=== PATIENT | female | born 1965 | race Caucasian/White ===

== ENCOUNTER 2019-10-20 00:25 | Emergency (ER) | payer OTHER, SELFPAY ==
[~2019-10-20] VITALS: Ht 152.4 cm; Wt 54.4 kg
[2019-10-20 00:30] VITALS: BP 126/80
[2019-10-20] MEDS ORDERED: KETOROLAC 30 MG/ML VIAL IM ONE (01:00)
[2019-10-20 01:26] LABS: BASOPHILS # (AUTO) 0.1 K/uL (0.00-0.22); BASOPHILS % (AUTO) 1.1 % (0.0-2.0); EOSINOPHILS # (AUTO) 0.1 K/uL (0-0.4); EOSINOPHILS % (AUTO) 0.7 % (0.0-4.0); HEMATOCRIT 38.8 % (36-48); HEMOGLOBIN 12.6 g/dL (12.0-16.0); LYMPHOCYTES # (AUTO) 1.3 K/uL (2.5-16.5); LYMPHOCYTES % (AUTO) 17.2 % (20.5-51.1); MEAN CORPUSCULAR HEMOGLOBIN 28 pg (27-31); MEAN CORPUSCULAR HGB CONC 33 g/dL (33-37); MEAN CORPUSCULAR VOLUME 87.4 fL (80-94); MONOCYTES # (AUTO) 0.4 K/uL (0.8-1.0); NEUTROPHILS # (AUTO) 5.6 K/uL (1.8-7.7); PLATELET COUNT (AUTO) 220 K/uL (140-450); RED BLOOD CELL COUNT(AUTO) 4.44 MIL/uL (4.20-5.40); RED CELL DISTRIBUTION WIDTH 15.7 % (11.6-13.7); WHITE BLOOD COUNT (AUTO) 7.4 K/uL (4.8-10.8)
[2019-10-20 01:43] LABS: PROTHROMBIN TIME 10.9 secs (10.8-13.4)
[2019-10-20 01:49] LABS: ALBUMIN 3.3 g/dL (3.4-5.0); ANION GAP 15.5 (8-16); CARBON DIOXIDE 24.1 mmol/L (21-32); CREATININE 1.4 mg/dL (0.6-1.3); FREE T4 (FREE THYROXINE) 1.12 ng/dL (0.76-1.46); POTASSIUM 4.6 mmol/L (3.5-5.1)
[2019-10-20] MEDS ORDERED: HYDROcodone/APAP 5/325 MG 1 TAB TAB PO ONE (02:20)
[2019-10-20 03:00] VITALS: BP 122/78
== END 2019-10-20 03:00 | disposition home or self-care (01) ==
LOC: MED 00:25
DX: N93.9 Abnormal uterine and vaginal bleeding, unspecified (principal); M79.10 Myalgia, unspecified site; J45.909 Unspecified asthma, uncomplicated; E11.9 Type 2 diabetes mellitus without complications; Z90.49 Acquired absence of other specified parts of digestive tract
CPT/HCPCS: 36415; 76830; 80053; 84439; 84443; 85025; 85610; 85730; 86886; 86900; 86901; 93976; 96372; 99284; J1885; Q0092

== ENCOUNTER 2020-02-22 22:44 | Emergency (ER) | payer OTHER, SELFPAY ==
[~2020-02-22] VITALS: Ht 162.6 cm; Wt 72.6 kg
--- NOTE | 2020-02-22 22:45 | NUR ---
PT TAKEN TO BED 6 VIA EMS VIA [facility].
[2020-02-22 22:55] VITALS: BP 92/62
--- NOTE | 2020-02-22 23:00 | NUR ---
PT ASLEEP IN BED IN POSITION OF COMFORT, BED LOW AND LOCKED, SIDERAILS UP, VSS, WILL CONTINUE TO MONITOR
--- NOTE | 2020-02-22 23:10 | NUR ---
LAB AT BEDSIDE
[2020-02-22 23:22] LABS: BASOPHILS # (AUTO) 0.1 K/uL (0.00-0.22); HEMATOCRIT 22.4 % (36-48); LYMPHOCYTES # (AUTO) 1.9 K/uL (2.5-16.5); MEAN CORPUSCULAR HEMOGLOBIN 29 pg (27-31); MONOCYTES # (AUTO) 0.7 K/uL (0.8-1.0); RED BLOOD CELL COUNT(AUTO) 2.52 MIL/uL (4.20-5.40)
[2020-02-22 23:25] LABS: BASOPHILS % (AUTO) 1.3 % (0.0-2.0); EOSINOPHILS # (AUTO) 0.2 K/uL (0-0.4); EOSINOPHILS % (AUTO) 3.4 % (0.0-4.0); MEAN CORPUSCULAR HGB CONC 32 g/dL (33-37); MEAN CORPUSCULAR VOLUME 88.8 fL (80-94); MONOCYTES % (AUTO) 9.8 % (1.7-9.3); NEUTROPHILS # (AUTO) 4.1 K/uL (1.8-7.7); NEUTROPHILS % (AUTO) 58.5 % (42.2-75.2); PLATELET COUNT (AUTO) 297 K/uL (140-450); WHITE BLOOD COUNT (AUTO) 7.1 K/uL (4.8-10.8)
[2020-02-22 23:27] LABS: HEMOGLOBIN 7.2 g/dL (12.0-16.0)
[2020-02-22] MEDS ORDERED: ATOR40TA PO (23:35)
[2020-02-22] MEDS ORDERED: PROP20TA29 PO (23:35)
[2020-02-22] MEDS ORDERED: BACL10TA4 PO (23:35)
[2020-02-22] MEDS ORDERED: TOPI25CA PO (23:35)
[2020-02-22] MEDS ORDERED: CLOP75TA26 PO (23:35)
[2020-02-22] MEDS ORDERED: NAPR-54 PO (23:35)
[2020-02-22] MEDS ORDERED: HYDR-5092 PO (23:35)
[2020-02-22] MEDS ORDERED: TRAZ-343 PO (23:35)
[2020-02-22] MEDS ORDERED: ASPI-1822 PO (23:35)
[2020-02-22] MEDS ORDERED: ALPR0.5T2 PO (23:35)
[2020-02-22] MEDS ORDERED: [UNRECOGNIZED DRUG - CODE] PO (23:35)
[2020-02-22] MEDS ORDERED: GABA400C PO ×2 (23:35)
[2020-02-22] MEDS ORDERED: OXYC40TE66 PO (23:35)
[2020-02-22] MEDS ORDERED: BUPR300T70 PO (23:35)
[2020-02-22 23:36] LABS: ACETAMINOPHEN 3.9 ug/ml (10-30); ALBUMIN 2.4 g/dL (3.4-5.0); ANION GAP 13.7 (8-16); ASPARTATE AMINOTRANSFERASE 13 U/L (15-37); CARBON DIOXIDE 23.2 mmol/L (21-32); CHLORIDE 110 mmol/L (98-107); CREATININE 1.2 mg/dL (0.6-1.3); GFR ARICAN-AMERICAN 61 mL/min (>90); GLUCOSE 109 mg/dL (74-106); POTASSIUM 3.9 mmol/L (3.5-5.1); SODIUM SERUM 143 mmol/L (136-145); TOTAL BILIRUBIN 0.5 mg/dL (0.0-1.0); UREA NITROGEN, BLOOD 20 mg/dL (7-18)
[2020-02-22 23:39] LABS: SALICYLATE < 2.8 mg/dL (2.8-20.0)
--- NOTE | 2020-02-22 23:42 | NUR ---
URINE SAMPLE OBTAINED
--- NOTE | 2020-02-22 23:42 | NUR ---
URINE DIP AND PREG DONE
[2020-02-22 23:57] LABS: APPEARANCE,URINE CLEAR (CLEAR); BILIRUBIN,URINE NEGATIVE (NEGATIVE); BLOOD, URINE NEGATIVE (NEGATIVE); COLOR,URINE YELLOW (YELLOW); LEUKOCYTE ESTERASE ,URINE NEGATIVE (NEGATIVE); NITRITE, URINE NEGATIVE (NEGATIVE); PH,URINE 6.5 (5.0-9.0); UGLUCOSE NEGATIVE (NEGATIVE)
--- NOTE | 2020-02-23 00:04 | NUR ---
54 Y/O FEMALE URBAN BLS FROM HOME FOR C/O ALOC. PT POST OP X 2 DAYS FOR SHUNT PLACED IN L LEG. PER FAMILY PT ON PAIN MEDICATIONS. PT UNABLE TO STATE WHICH PAIN MEDICATIONS SHE TOOK. PUPILS REACTIVE AND BRISK. 3MM. PMH: SHUNT YEE
[2020-02-23 00:08] LABS: BARBITURATE, URINE NEGATIVE ng/ml (NEG <=200); BENZODIAZEPINE, URINE POSITIVE ng/mL (NEG <=200); CANNABINOID, URINE NEGATIVE ng/mL (NEG <=50); COCAINE, URINE NEGATIVE ng/mL (NEG <=300); PHENCYCLIDINE SCREEN,URINE NEGATIVE ng/mL (NEG <=25)
[2020-02-23 00:09] LABS: OPIATE, URINE POSITIVE ng/mL (NEG <=2000)
--- NOTE | 2020-02-23 00:11 | NUR ---
PT ASLEEP IN BED IN POSITION OF COMFORT, BED LOW AND LOCKED, SIDERAILS UP, VSS, WILL CONTINUE TO MONITOR
[2020-02-23] MEDS ORDERED: NACL 0.9% 1,000 ML IV ONE (00:15)
--- NOTE | 2020-02-23 04:10 | NUR ---
PT ASLEEP IN BED IN POSITION OF COMFORT, BED LOW AND LOCKED, SIDERAILS UP, VSS, WILL CONTINUE TO MONITOR
[2020-02-23 05:56] VITALS: BP 124/70
--- NOTE | 2020-02-23 05:56 | NUR ---
Patient discharged with v/s stable. Written and verbal after care instructions given and explained. Patient verbalized understanding. W/C TO ER LOBBY. All questions addressed prior to discharge. Advised to follow up with PMD.
== END 2020-02-23 05:56 | disposition home or self-care (01) ==
LOC: MED 22:44
DX: R40.4 Transient alteration of awareness (principal); E11.9 Type 2 diabetes mellitus without complications; J45.909 Unspecified asthma, uncomplicated; Z98.890 Other specified postprocedural states; Z79.899 Other long term (current) drug therapy
CPT/HCPCS: 36415; 80053; 80305; 81003; 81025; 84484; 85025; 93005; 96360; 99284; C1758; G0480; G0482; J7030; 99283

== ENCOUNTER 2020-02-24 13:14 | Observation (INO) | payer OTHER ==
[~2020-02-24] VITALS: Ht 160 cm; Wt 49.9 kg
[~2020-02-24 13:14] MED LIST: ALPR0.5T2 PO; ASPI-1822 PO; ATOR40TA PO; BACL10TA4 PO; BUPR300T70 PO; CLOP75TA26 PO; GABA400C PO; HYDR-5092 PO; NAPR-54 PO; OXYC40TE66 PO; PROP20TA29 PO; TOPI25CA PO; TRAZ-343 PO; [UNRECOGNIZED DRUG - CODE] PO
[2020-02-24 13:15] VITALS: BP 127/81
[2020-02-24] MEDS ORDERED: cefTRIAXone 1,000 MG VIAL ONE (20:00)
[2020-02-24 20:24] LABS: BASOPHILS # (AUTO) 0.1 K/uL (0.00-0.22); BASOPHILS % (AUTO) 1.4 % (0.0-2.0); EOSINOPHILS # (AUTO) 0.3 K/uL (0-0.4); EOSINOPHILS % (AUTO) 3.8 % (0.0-4.0); HEMATOCRIT 27.8 % (36-48); LYMPHOCYTES # (AUTO) 1.9 K/uL (2.5-16.5); LYMPHOCYTES % (AUTO) 26.1 % (20.5-51.1); MEAN CORPUSCULAR HEMOGLOBIN 28 pg (27-31); MEAN CORPUSCULAR HGB CONC 32 g/dL (33-37); MEAN CORPUSCULAR VOLUME 87.6 fL (80-94); MONOCYTES # (AUTO) 0.7 K/uL (0.8-1.0); MONOCYTES % (AUTO) 9.3 % (1.7-9.3); NEUTROPHILS # (AUTO) 4.4 K/uL (1.8-7.7); NEUTROPHILS % (AUTO) 59.4 % (42.2-75.2); PLATELET COUNT (AUTO) 293 K/uL (140-450); RED BLOOD CELL COUNT(AUTO) 3.18 MIL/uL (4.20-5.40); RED CELL DISTRIBUTION WIDTH 15.7 % (11.6-13.7); WHITE BLOOD COUNT (AUTO) 7.4 K/uL (4.8-10.8)
[2020-02-24 20:34] LABS: ALBUMIN 2.6 g/dL (3.4-5.0); ANION GAP 13.8 (8-16); CARBON DIOXIDE 24.2 mmol/L (21-32); TOTAL BILIRUBIN 0.6 mg/dL (0.0-1.0)
[2020-02-24 20:53] LABS: APPEARANCE,URINE HAZY (CLEAR); BILIRUBIN,URINE NEGATIVE (NEGATIVE); BLOOD, URINE NEGATIVE (NEGATIVE); COLOR,URINE YELLOW (YELLOW); LEUKOCYTE ESTERASE ,URINE 3+ (NEGATIVE); NITRITE, URINE NEGATIVE (NEGATIVE); UGLUCOSE NEGATIVE (NEGATIVE)
[2020-02-24 21:01] LABS: RBC,URINE 0-5 /HPF (0-5)
[2020-02-24 21:02] LABS: WBC,URINE 16-25 (MOD) /HPF (0-5)
[2020-02-24 21:04] LABS: BARBITURATE, URINE NEGATIVE ng/ml (NEG <=200); BENZODIAZEPINE, URINE POSITIVE ng/mL (NEG <=200); CANNABINOID, URINE NEGATIVE ng/mL (NEG <=50); COCAINE, URINE NEGATIVE ng/mL (NEG <=300); OPIATE, URINE POSITIVE ng/mL (NEG <=2000); PHENCYCLIDINE SCREEN,URINE NEGATIVE ng/mL (NEG <=25)
[2020-02-24] MEDS ORDERED: NACL 0.9% 1,000 ML IV SCH (21:05)
[2020-02-24] MEDS ORDERED: ONDANSETRON 4 MG/2 ML VIAL IVP PRN (21:05)
[2020-02-24] MEDS ORDERED: traZODone 50 MG TAB PO PRN (21:05)
[2020-02-24] MEDS ORDERED: LORazepam 2 MG/ML VIAL IVP PRN (21:05)
[2020-02-24] MEDS ORDERED: HALOPERIDOL IM 5 MG/ML VIAL IM PRN (21:10)
[2020-02-24 21:30] VITALS: BP 150/72
[2020-02-25] VITALS: BP 140/86
[2020-02-25] MEDS ORDERED: DEXTROSE 50% 50 ML SYR IVP ONE ×2 (00:30→00:55)
[2020-02-25] MEDS: DEXT 5% / NACL 0.45% 1,000 ML IV SCH ×2 (00:45→17:24)
[2020-02-25 04:00] VITALS: BP 136/85
[2020-02-25] MEDS: ACETAMINOPHEN 325 MG TAB PO PRN ×2 (05:40→21:43)
[2020-02-25 06:29] LABS: BASOPHILS # (AUTO) 0.1 K/uL (0.00-0.22); BASOPHILS % (AUTO) 1.2 % (0.0-2.0); EOSINOPHILS # (AUTO) 0.2 K/uL (0-0.4); HEMATOCRIT 28.1 % (36-48); HEMOGLOBIN 9.1 g/dL (12.0-16.0); LYMPHOCYTES # (AUTO) 1.4 K/uL (2.5-16.5); LYMPHOCYTES % (AUTO) 19.9 % (20.5-51.1); MEAN CORPUSCULAR HEMOGLOBIN 28 pg (27-31); MEAN CORPUSCULAR HGB CONC 32 g/dL (33-37); MONOCYTES # (AUTO) 0.5 K/uL (0.8-1.0); MONOCYTES % (AUTO) 7.5 % (1.7-9.3); NEUTROPHILS # (AUTO) 4.7 K/uL (1.8-7.7); NEUTROPHILS % (AUTO) 68.4 % (42.2-75.2); PLATELET COUNT (AUTO) 308 K/uL (140-450); RED BLOOD CELL COUNT(AUTO) 3.23 MIL/uL (4.20-5.40); RED CELL DISTRIBUTION WIDTH 15.9 % (11.6-13.7); WHITE BLOOD COUNT (AUTO) 6.9 K/uL (4.8-10.8)
[2020-02-25 07:34] LABS: ALBUMIN 2.7 g/dL (3.4-5.0); ANION GAP 17.4 (8-16); CARBON DIOXIDE 21.6 mmol/L (21-32); CREATININE 1.1 mg/dL (0.6-1.3); TOTAL BILIRUBIN 0.5 mg/dL (0.0-1.0)
[2020-02-25 08:00] VITALS: BP 145/78
[2020-02-25] MEDS ORDERED: HYDROcodone/APAP 10/325 MG 1 TAB TAB PO PRN (08:45)
[2020-02-25] MEDS: PROPRANOLOL 20 MG TAB PO SCH ×2 (08:51→21:03)
[2020-02-25] MEDS: ASPIRIN 81 MG TAB.CHEW PO SCH (09:10)
[2020-02-25] MEDS: BACLOFEN 10 MG TAB PO SCH ×3 (09:11→17:21)
[2020-02-25] MEDS: CLOPIDOGREL 75 MG TAB PO SCH (09:12)
[2020-02-25] MEDS: GABAPENTIN 300 MG CAP PO SCH ×3 (09:12→17:21)
[2020-02-25] MEDS: HYDROcodone/APAP 5/325 MG 1 TAB TAB PO PRN ×4 (09:40→23:52)
[2020-02-25 12:00] VITALS: BP 118/72
[2020-02-25] MEDS: HYDRAGUARD CREAM TP SCH (13:00)
[2020-02-25] MEDS: GAUZE TP SCH (13:00)
[2020-02-25 16:00] VITALS: BP 119/65
[2020-02-25] MEDS: oxyCODONE 5 MG TAB PO PRN (17:11)
[2020-02-25] MEDS: ALBUTEROL 0.083% 2.5 MG/3 ML NEBU INH SCH ×2 (18:51→23:19)
[2020-02-25 20:00] VITALS: BP 140/71
[2020-02-25] MEDS ORDERED: CRUSHER, PILL MC ONE (20:37)
[2020-02-26] VITALS: BP 142/70
[2020-02-26] MEDS: HYDRAGUARD CREAM TP SCH ×2 (01:00→12:51)
[2020-02-26] MEDS: GAUZE TP SCH ×2 (01:00→13:14)
[2020-02-26] MEDS: ALBUTEROL 0.083% 2.5 MG/3 ML NEBU INH SCH ×3 (02:45→11:00)
[2020-02-26] MEDS: oxyCODONE 5 MG TAB PO PRN (03:46)
[2020-02-26 04:00] VITALS: BP 140/79
[2020-02-26 08:00] VITALS: BP 152/81
[2020-02-26] MEDS: HYDROcodone/APAP 5/325 MG 1 TAB TAB PO PRN (08:21)
[2020-02-26] MEDS: BACLOFEN 10 MG TAB PO SCH ×2 (08:21→12:50)
[2020-02-26] MEDS: PROPRANOLOL 20 MG TAB PO SCH (08:21)
[2020-02-26] MEDS: ASPIRIN 81 MG TAB.CHEW PO SCH (08:22)
[2020-02-26] MEDS: CLOPIDOGREL 75 MG TAB PO SCH (08:22)
[2020-02-26] MEDS: GABAPENTIN 300 MG CAP PO SCH ×2 (08:22→12:50)
[2020-02-26] MEDS ORDERED: OXY5 PO (08:41)
[2020-02-26] MEDS ORDERED: ALPR0.5T2 PO (08:41)
[2020-02-26] MEDS ORDERED: GABA300C1 PO (08:41)
[2020-02-26] MEDS: DEXT 5% / NACL 0.45% 1,000 ML IV SCH (10:35)
[2020-02-26 11:21] VITALS: BP 157/77
[2020-02-26 11:32] VITALS: BP 157/77
[2020-02-26 12:00] VITALS: BP 157/77
== END 2020-02-26 15:10 | disposition home or self-care (01) ==
LOC: MED 13:14 → MTU 21:08
PROVIDERS: ADMIT Internal Medicine; ATTEND Internal Medicine
DX: T40.2X1A Poisoning by other opioids, accidental (unintentional), initial encounter (principal); R41.82 Altered mental status, unspecified; G93.41 Metabolic encephalopathy; F41.9 Anxiety disorder, unspecified; M79.605 Pain in left leg; G89.29 Other chronic pain; J18.9 Pneumonia, unspecified organism; N39.0 Urinary tract infection, site not specified; R09.02 Hypoxemia; J45.909 Unspecified asthma, uncomplicated; E11.9 Type 2 diabetes mellitus without complications; Z79.899 Other long term (current) drug therapy; X58.XXXA Exposure to other specified factors, initial encounter; Y93.89 Activity, other specified; Y92.89 Other specified places as the place of occurrence of the external cause
CPT/HCPCS: 36415; 71045; 73630; 80053; 80305; 81001; 82948; 85025; 87040; 87081; 87086; 87186; 94640; 94760; 96361; 96365; 96375; 99285; G0378; J0696; J7120; J7613; Q0092; J2405

== ENCOUNTER 2020-03-02 00:40 | Emergency (ER) | payer OTHER ==
[~2020-03-02] VITALS: Ht 152.4 cm; Wt 49.4 kg
[~2020-03-02 00:40] MED LIST changes: +GABA300C1 PO; -GABA400C PO; +OXY5 PO; -OXYC40TE66 PO; -[UNRECOGNIZED DRUG - CODE] PO
[2020-03-02 00:55] VITALS: BP 126/54
--- NOTE | 2020-03-02 01:33 | NUR ---
PT TAKEN TO ER CHAIR TO COLLECT LABS. LABS COLLECTED AND SENT TO LAB.
[2020-03-02 01:44] LABS: BASOPHILS # (AUTO) 0.1 K/uL (0.00-0.22); BASOPHILS % (AUTO) 0.5 % (0.0-2.0); HEMATOCRIT 32.6 % (36-48); HEMOGLOBIN 10.6 g/dL (12.0-16.0); LYMPHOCYTES # (AUTO) 2.7 K/uL (2.5-16.5); LYMPHOCYTES % (AUTO) 23.6 % (20.5-51.1); MEAN CORPUSCULAR HEMOGLOBIN 27 pg (27-31); MEAN CORPUSCULAR HGB CONC 32 g/dL (33-37); MEAN CORPUSCULAR VOLUME 83.8 fL (80-94); MONOCYTES # (AUTO) 0.7 K/uL (0.8-1.0); MONOCYTES % (AUTO) 6.3 % (1.7-9.3); NEUTROPHILS % (AUTO) 69.6 % (42.2-75.2); PLATELET COUNT (AUTO) 400 K/uL (140-450); RED BLOOD CELL COUNT(AUTO) 3.89 MIL/uL (4.20-5.40); WHITE BLOOD COUNT (AUTO) 11.5 K/uL (4.8-10.8)
[2020-03-02 02:01] LABS: ALBUMIN 3.3 g/dL (3.4-5.0); CARBON DIOXIDE 19.7 mmol/L (21-32); CREATININE 1.5 mg/dL (0.6-1.3); POTASSIUM 3.7 mmol/L (3.5-5.1); TOTAL BILIRUBIN 0.8 mg/dL (0.0-1.0)
--- NOTE | 2020-03-02 02:05 | NUR ---
PT TAKEN TO CT VIA W/C.
--- NOTE | 2020-03-02 02:21 | NUR ---
PT TAKEN TO BED 12 VIA W/C.
--- NOTE | 2020-03-02 03:05 | NUR ---
PT CONTINUES TO C/O NAUSEA AND SEVERE PAIN TO L LEG. MD ESCOBAR AWARE.
[2020-03-02] MEDS: NACL 0.9% 1,000 ML IV ONE (03:13)
[2020-03-02] MEDS: KETOROLAC 30 MG/ML VIAL IVP ONE (03:14)
[2020-03-02] MEDS: ONDANSETRON 4 MG/2 ML VIAL IVP ONE (03:14)
--- NOTE | 2020-03-02 03:18 | NUR ---
IV SITE INFILTRATED UNABLE TO MEDICATE WITH IV MORPHINE, MD AWARE CHANGED ORDER TO TRAMADOL.
[2020-03-02] MEDS ORDERED: MORPHINE SULFATE 2 MG/ML SYR IVP ONE (03:25)
[2020-03-02] MEDS: traMADol 50 MG TAB PO ONE (03:45)
--- NOTE | 2020-03-02 03:51 | NUR ---
ADVISED PT SHE WAS GOING TO BE DISCHARGED SHE BEGAN CRYING STATING SHE CAN'T GO HOME WITH THE INTENSE PAIN SHE IS HAVING ABD THE NAUSEA. ADVISED MD ESCOBAR OF SITUATION AND LET HER KNOW PT WANTS TO SPEAK WITH HER.
--- NOTE | 2020-03-02 04:11 | NUR ---
ORDERED ULTRASOUND. TRYING TO ESTABLISH ANOTHER IV LINE.
--- NOTE | 2020-03-02 04:22 | NUR ---
ADVISED PT UA IS NEEDED, CUP LEFT AT BEDSIDE
--- NOTE | 2020-03-02 04:26 | NUR ---
ANDRE HERNANDES AT BEDSIDE TRING TO ESTABLISH AN IV LINE
--- NOTE | 2020-03-02 05:00 | NUR ---
PT UNABLE TO PROVIDE UA SPECIMEN
--- NOTE | 2020-03-02 05:22 | NUR ---
STILL WAITING FOR BAND SEWER AT THIS TIME. PT CONTINUES TO C/O PAIN 03/23. MD ESCOBAR AWARE
[2020-03-02] MEDS: MORPHINE SULFATE 2 MG/ML SYR IVP ONE (05:31)
[2020-03-02] MEDS: LACTULOSE 20 GM/30 ML UDC PO ONE (05:33)
--- NOTE | 2020-03-02 05:54 | NUR ---
D/C PRESCRIPTION AND PAPERWORK GIVEN TO PT, PT SIGNED PAPERWORK AND WAITING FOR HER RIDE WHICH WILL BE HERE IN 45 MINUTES
--- NOTE | 2020-03-02 07:22 | NUR ---
ASSUMED CARE OF PATIENT.
--- NOTE | 2020-03-02 07:30 | NUR ---
IV removed, catheter intact and site benign. Applied folded 4x4 gauze and tape to stop bleeding.
--- NOTE | 2020-03-02 07:41 | NUR ---
PT WAS DICHARGED AND EDUCATED BY PM NURSE AUGUSTIN. IV REMOVED AND WHEELED TO LOBBY IN STABLE CONDITION.
[2020-03-02 07:42] VITALS: BP 123/58
== END 2020-03-02 07:41 | disposition home or self-care (01) ==
LOC: MED 00:40
DX: K59.00 Constipation, unspecified (principal); R11.2 Nausea with vomiting, unspecified; E87.1 Hypo-osmolality and hyponatremia; R74.0 Nonspecific elevation of levels of transaminase and lactic acid dehydrogenase [LDH]; E11.9 Type 2 diabetes mellitus without complications; I82.409 Acute embolism and thrombosis of unspecified deep veins of unspecified lower extremity; J45.909 Unspecified asthma, uncomplicated; K76.0 Fatty (change of) liver, not elsewhere classified; Z90.49 Acquired absence of other specified parts of digestive tract; Z79.899 Other long term (current) drug therapy
CPT/HCPCS: 36415; 74176; 80053; 83690; 85025; 93970; 96361; 96374; 96375; 99284; J1885; J2270; J2405; J7030; Q0092

== ENCOUNTER 2021-03-07 11:18 | Emergency (ER) | payer OTHER ==
[~2021-03-07] VITALS: Ht 152.4 cm; Wt 63.5 kg
[2021-03-07 11:20] VITALS: BP 133/91
--- NOTE | 2021-03-07 11:20 | NUR ---
PT BIBA, PT IN WHEELCHAIR IN CHAIR C, AWAITING BED.
--- NOTE | 2021-03-07 11:27 | NUR ---
DR HUYNH EVALUATING PT IN [facility].
--- NOTE | 2021-03-07 12:10 | NUR ---
PT TAKEN TO BED 12 VIA WHEELCHAIR. PT CONNECTED TO CARDIAC/O2 MONITOR.
--- NOTE | 2021-03-07 12:16 | NUR ---
55 YO FEMALE BIBA FROM HOME, FOUND UNRESPONSIVE BY BF, POSSIBLE OVERDOSE ON MORPHINE. EMS ARRIVED ON SCENE AND GAVE X3 NARCAN. PT IS NOW AOX4. PERRLA, DENIES SOB, PAIN, N/V/D. PATIENT PLACED ON MONITOR. O2 SAT 96%, RR 18. HX LEUKEMIA, DM, ASTHMA, L LEG AMPUTATION X5M AGO. NKDA
[2021-03-07] MEDS ORDERED: NALO4SPR NS (12:30)
--- NOTE | 2021-03-07 13:15 | NUR ---
PT RR DROPPED TO 5 WHILE SLEEPING, PT ARROUDABLE RR INCREASED TO 14 WHILE AWAKE. MD HUYNH MADE AWARE
[2021-03-07] MEDS ORDERED: NALOXONE 0.4 MG/ML VIAL ONE (13:22)
--- NOTE | 2021-03-07 13:45 | NUR ---
PT GIVEN WATER AND ICE CHIPS, PASSED PO TEST.
--- NOTE | 2021-03-07 14:14 | NUR ---
PT RESTING IN BED, RR DROPS TO 5-6, AROUSABLE-AWOKEN, PT RR RETURNED TO 14.
[2021-03-07 16:14] VITALS: BP 111/66
--- NOTE | 2021-03-07 16:14 | NUR ---
Patient discharged with v/s stable. Written and verbal after care instructions given and explained. Patient alert, oriented and verbalized understanding of instructions. Wheel Chair Assisted with to car. All questions addressed prior to discharge. ID band removed. Patient advised to follow up with PMD. Rx of NALOXONE HCL (NARCAN) given. Patient educated on indication of medication including possible reaction and side effects. Opportunity to ask questions provided and answered.
== END 2021-03-07 16:14 | disposition home or self-care (01) ==
LOC: MED 11:18
DX: T40.601A Poisoning by unspecified narcotics, accidental (unintentional), initial encounter (principal); E11.9 Type 2 diabetes mellitus without complications; J45.909 Unspecified asthma, uncomplicated; Z85.6 Personal history of leukemia; Z89.512 Acquired absence of left leg below knee; Z79.899 Other long term (current) drug therapy; Z79.82 Long term (current) use of aspirin; Y92.89 Other specified places as the place of occurrence of the external cause
CPT/HCPCS: 99283; J2310

== ENCOUNTER 2021-04-18 02:50 | Emergency (ER) | payer OTHER ==
[~2021-04-18] VITALS: Ht 149.9 cm; Wt 53.1 kg
[~2021-04-18 02:50] MED LIST changes: +NALO4SPR NS
--- NOTE | 2021-04-18 02:50 | NUR ---
PT BROUGHT TO BED 10 VIA [facility]
--- NOTE | 2021-04-18 02:52 | NUR ---
PLACED ET TUBE 7.5 @ 23 AT THE GUM.
--- NOTE | 2021-04-18 02:59 | NUR ---
ROSC ACHIEVED AT THIS TIME.
--- NOTE | 2021-04-18 03:14 | NUR ---
RINA Dickson IVP 20mcg epi through left ua 18G. patient tolerated well.
--- NOTE | 2021-04-18 03:19 | NUR ---
RINA Dickson, ordered IVP 40mcg of epi from crash cart. 40mcg epi pushed through the right ua, patient tolerated well.
[2021-04-18] MEDS: PROPOFOL 200 MG/20 ML VIAL IV ONE (03:20)
[2021-04-18] MEDS ORDERED: NOREPINEPHRINE 4 MG/4 ML VIAL IV ONE (03:23)
--- NOTE | 2021-04-18 03:23 | NUR ---
# 16 FR NG tube placed to right nare. Placement checked by auscultation of instilled air into stomach and aspiration of gastric contents. Tubing taped in place to prevent dislodging. Patient tolerated well.
[2021-04-18] MEDS: NOREPINEPHRINE 4 MG in DEXTROSE 5% 250 ML IV ONE (03:25)
--- NOTE | 2021-04-18 03:30 | NUR ---
17 @ GUM OF ENDOTRACHEAL TUBE
--- NOTE | 2021-04-18 03:54 | NUR ---
Patient to be transferred to [facility]. Is being transferred due to higher level of care and trauma. Receiving facility has accepting physician and available space. ER physician has signed transfer form. Patient or responsible republican has agreed to transfer and signed form. Patient belongings inventoried and will be sent with patient. Copy of nursing notes, lab reports, EKG, Physicians Orders and X-rays to be sent with patient. Report called to Yesenia HERNANDES at receiving facility. [facility] ambulance service has been called for transfer.
--- NOTE | 2021-04-18 03:54 | NUR ---
ABG RESULTS WERE REPORTED TO DR. GREENE AND TRANSPORT TEAM.
[2021-04-18 03:57] LABS: BASOPHILS # (AUTO) 0.2 K/uL (0.00-0.22); BASOPHILS % (AUTO) 0.6 % (0.0-2.0); EOSINOPHILS # (AUTO) 0.6 K/uL (0-0.4); EOSINOPHILS % (AUTO) 1.7 % (0.0-4.0); HEMATOCRIT 46.3 % (36-48); HEMOGLOBIN 13.6 g/dL (12.0-16.0); LYMPHOCYTES # (AUTO) 10.9 K/uL (2.5-16.5); LYMPHOCYTES % (AUTO) 33.8 % (20.5-51.1); MEAN CORPUSCULAR HEMOGLOBIN 28 pg (27-31); MEAN CORPUSCULAR HGB CONC 30 g/dL (33-37); MEAN CORPUSCULAR VOLUME 95.4 fL (80-94); MONOCYTES # (AUTO) 0.7 K/uL (0.8-1.0); NEUTROPHILS % (AUTO) 61.9 % (42.2-75.2); PLATELET COUNT (AUTO) 216 K/uL (140-450); RED BLOOD CELL COUNT(AUTO) 4.85 MIL/uL (4.20-5.40); RED CELL DISTRIBUTION WIDTH 16.9 % (11.6-13.7)
[2021-04-18 04:03] LABS: WHITE BLOOD COUNT (AUTO) 32.4 K/uL (4.8-10.8)
[2021-04-18 04:10] VITALS: BP 86/56
[2021-04-18 04:10] LABS: PROTHROMBIN TIME 18.5 secs (10.8-13.4)
--- NOTE | 2021-04-18 04:10 | NUR ---
SEE VS SPREADSHEET FOR VITALS
--- NOTE | 2021-04-18 04:10 | NUR ---
PATIENT TRANSFERRED TO [place] [facility]IA [facility] BY [facility]
--- NOTE | 2021-04-18 04:10 | NUR ---
[facility] TRANSPORTED PT TO [facility] AT THIS TIME.
[2021-04-18 04:20] LABS: ALBUMIN 2.9 g/dL (3.4-5.0); ANION GAP 24.8 (8-16); CARBON DIOXIDE 15.2 mmol/L (21-32); TOTAL BILIRUBIN 0.5 mg/dL (0.0-1.0)
--- NOTE | 2021-04-18 05:14 | NUR ---
Jaskaran carlson in ED - 04/18/21 at 0515 by ADRIA SEE VITALS SIGNS ON IV SPREADSHEET
== END 2021-04-18 04:10 | disposition short-term general hospital (02) ==
LOC: MED 02:50
DX: I46.9 Cardiac arrest, cause unspecified (principal); I21.3 ST elevation (STEMI) myocardial infarction of unspecified site; R57.0 Cardiogenic shock; J45.909 Unspecified asthma, uncomplicated; E11.9 Type 2 diabetes mellitus without complications; Z79.82 Long term (current) use of aspirin; Z79.899 Other long term (current) drug therapy; Z85.9 Personal history of malignant neoplasm, unspecified; Z89.512 Acquired absence of left leg below knee
CPT/HCPCS: 31500; 36415; 36556; 36569; 36600; 71045; 80053; 82803; 83605; 83880; 84484; 85025; 85610; 85730; 93005; 96365; 96375; 99291; J1644; J3490